=== PATIENT | male | born 2000 | race Caucasian/White ===

== ENCOUNTER 2023-01-31 17:28 | Emergency (ER) | payer OTHER, SELFPAY ==
[2023-01-31 17:40] VITALS: BP 114/70; PULSE 71; RESP 16; TEMP 36.7; O2SAT 100; BMI 21.3
--- NOTE | 2023-01-31 17:44 | DI.RAD.S_ITS ---
PROCEDURE: XR TIBIA FUBULA RT 2V INDICATIONS: tire dropped on R foley TECHNIQUE: 2 views of the tibia and fibula were acquired. COMPARISON: None. FINDINGS: Bones: No fractures or dislocations. No suspicious bony lesions. Soft tissues: No suspicious soft tissue calcifications or masses. IMPRESSION: No acute fracture. No osseous lesion. If symptoms and/or clinical suspicion for pathology persist, further assessment with repeat, or advanced imaging (e.g., CT, MRI, or bone scan) may be helpful for further assessment. Dictated by: Orlando Barriga M.D. on 01/31/2023 at 18:03 Approved by: Orlando Barriga M.D. on 01/31/2023 at 18:03
--- NOTE | 2023-01-31 20:59 | PC.NURSE ---
Pt reports a aircraft tire which weighs approximately 200 lbs was dropped on his right leg on the anterior chin area. Pt unable to distinguish touch. Pt unable to feel touch of dull object or sharp. No gross deformity seen. Slight swelling of his right ankle. Pain goes from his right posterior leg and wraps around front, up to his mid right thigh and down to his right foot.
--- NOTE | 2023-01-31 21:42 | ED_ITS ---
HPI - Extremity Injury (Lower) General Chief Complaint: Extremity Injury, Lower Stated Complaint: Left leg injury Time Seen by Provider: 01/31/23 20:09 Source: patient Mode of arrival: Ambulatory History of Present Illness HPI Narrative: 22-year-old male nonsmoker with noncontributory medical history presents with significant other and a chief complaint of an injury to his right lower extremity. He is [employer] and was loading a large tire and lost control of it when it tipped over onto his leg. He now has bruising to his anterior foley and pain with ambulation. He denies any knee, ankle or hip pain. His pain is worse with attempts at ambulation and improves with rest. He does admit to some occasional numbness in his posterior medial calf. Related Data Allergies Allergy/AdvReac Type Severity Reaction Status Date / Time No Known Drug Allergies Allergy Verified 01/31/23 17:44 Review of Systems Review of Systems Narrative: GENERAL: Denies chills, fatigue, malaise, fever, sweats. HEENT: Denies sinus pain, ear pain, sore throat, difficulty swallowing, dizz iness. RESPIRATORY: Denies dyspnea, cough, wheezing, hemoptysis, sputum. CARDIOVASCULAR: Denies chest pain, palpitations, orthopnea, edema, GASTROINTESTINAL: Denies nausea, vomiting, abdominal pain, diarrhea, constipation, melena. : Denies dysuria, frequency, incontinence, hematuria, urinary retention. MUSCULOSKELETAL: See HPI SKIN: Denies rash, skin lesions, or other NEUROLOGIC: Denies weakness, headache, numbness, change in speech, confusion, seizures, incoordination. PSYCHIATRIC: No concerning psychosocial issues. 12 point review of systems is negative except for those stated above Patient History Social History Smoking Status: Never smoker Smoking Status: Never smoker Substance Use Type: does not use Exam Narrative Exam Narrative: GEN: AOx3 and in mild distress EYES: Pupils are equal, round, and reactive to light and accommodation. Extraoccular muscles are intact bilaterally. There is no subconjunctival hemorrhage or exudate. CHEST: Lungs are clear to auscultation bilaterally and free of wheezes, rales, or rhonchi. Heart rate is regular rhythm, there are no murmurs, clicks, rubs, or gallops. There is no chest wall tenderness. ABD: Abdomen is soft and nontender. There is no guarding or rebound. Bowel sounds are normal in all 4 quadrants. There is no mass or organomegaly. EXT: No hip or ankle pain, there is ecchymosis and minimal swelling to anterior mid foley. No bony tenderness and knee, no ligamentous instability. Lower extremity compartments are soft. No pain on lateral or medial malleolus, distal pulses intact, sensation intact SKIN: Warm, pink, and dry. No erythema or rash Initial Vital Signs Initial Vital Signs: Vital Signs Temperature 98.1 F 01/31/23 17:40 Pulse Rate 71 01/31/23 17:40 Respiratory Rate 16 01/31/23 17:40 Blood Pressure 114/70 01/31/23 17:40 Pulse Oximetry 100 01/31/23 17:40 Oxygen Delivery Method Room Air 01/31/23 17:40 Course Orders Ordered: ED Orders 01/31/23 17:44 XR tibia fibula RT 2V Stat Vital Signs Vital signs: Vital Signs - 8 hr 01/31/23 22:11 Pulse Rate 78 Respiratory Rate 18 Blood Pressure 118/76 Pulse Oximetry 99 Oxygen Delivery Method Room Air MDM - Extremity Injury (Lower) MDM Narrative Medical decision making narrative: [22] year old patient presents with RLE pain after injury Multiple etiologies for patient's symptoms considered including, but not limited to: [Fracture versus contusion versus compartment syndrome versus other] Prior Charts reviewed in our EMR Primary Historian: patient Imaging reviewed: No evidence of fracture or dislocation History and exam are very reassuring, patient is ambulatory, compartments are soft, imaging unremarkable, no obvious deformity, closed, isolated and neurovascularly intact Findings and discharge diagnosis discussed with patient/family followed by verbalization of understanding Return precautions discussed with patient/family whom verbalize understanding of diagnosis and plan Discharge Plan Departure Patient Disposition: Home Clinical Impression: Contusion of tibia Instructions: DI for Contusion Activity Restrictions/Additional Instructions: *You have been diagnosed with [right lower extremity pain, likely from contusion and associated inflammatory change. As we discussed there is no evidence of fracture or dislocation, no evidence of ligamentous instability or compartment syndrome.] *What to do: *Please continue to take your regular medications as directed. [ ] New medication prescriptions sent to your pharmacy: [ ] [ ] New medication written as a paper prescription [ ] No new medications given *Please follow up with your primary care provider in 2-3 days, call for an appointment. Let them know you were seen in the Emergency Department and that we ask that you be seen in follow up. We will electronically transmit a record of today's note if your PCP is in our system *If you do not have a primary care provider please contact the [facility] Resource line at [phone]. They will ask some questions about your medical history and help get you set up with a doctor in the community. *Return to Emergency Department if you should have any new, worsening or concerning symptoms, such as [fever greater than 101 F, shaking chills, worsening pain, persistent vomiting or other bothersome symptoms] Stand Alone Forms: Patient Portal/API
[2023-01-31 22:11] VITALS: BP 118/76; PULSE 78; RESP 18; O2SAT 99
== END 2023-01-31 22:11 | disposition home or self-care (01) ==
PROVIDERS: Emergency Provider Emergency Medicine
DX: S80.11XA Contusion of right lower leg, initial encounter (principal); W23.0XXA Caught, crushed, jammed, or pinched between moving objects, initial encounter
CPT/HCPCS: 73590; 99283